=== PATIENT | female | born 1950 | race Caucasian/White ===

== ENCOUNTER 2016-10-05 11:12 | Inpatient (IN) ==
[2016-10-05 12:02] LABS: BASO% 0.2 % (0.0-0.8); HEMATOCRIT 31.5 % (37.0-47.0); HEMOGLOBIN 9.4 g/dL (12.0-16.0); IMM GRAN# 0.03 X1000 (0.0-0.04); IMM GRAN% 0.6 % (0.0-0.5); LYMPH# 0.62 X1000 (1.2-3.4); LYMPH% 11.6 % (20.5-51.1); MANUAL DIFF NEEDED? NO; MCHC 29.8 g/dL (33-37); MCV 70.3 FL (81-99); MONO% 13.1 % (1.7-9.3); MPV 9.5 FL (7.4-10.4); NEUT% 74.5 % (42.2-75.2); PLT 379 X1000 (130-400); RBC 4.48 XMIL (4.2-5.4)
--- NOTE | 2016-10-05 12:13 | Diag Imaging Result Doc PS360 ---
EXAM: HEAD W/O CONTRAST - 10/05/2016 HISTORY: right hemiparesis and facial droop TECHNIQUE: Without contrast. Dose reduction protocol. COMPARISON: 09/24/2016 FINDINGS: There are moderate chronic microvascular ischemic changes similar to the previous exam. There is no indication of recent infarct, but acute infarcts may not be immediately visible. There is an approximately 1 cm partially calcified lesion at the superior medial left parietal lobe which appears stable and likely represents small meningioma. There is no evidence of hemorrhage, mass effect, midline shift, or hydrocephalus. IMPRESSION: Moderate chronic microvascular ischemic changes. No visible acute process. If occult acute infarct is suspected clinically, MRI could be considered. Electronically signed by Neo Garcia 10/05/2016 12:11 PM
[2016-10-05 12:23] LABS: AGAP 18; ALKALINE PHOSPHATASE 82 U/L (32-104); BUN 17 mg/dL (8-22); CALCIUM 9.5 mg/dL (8.8-10.2); CHLORIDE 95 mmol/L (98-107); COSMO 279; GOT 11 U/L (10-30); GPT 7 U/L (10-36); POTASSIUM 3.4 mmol/L (3.5-5.1); SODIUM 136 mmol/L (136-145); TCO2 23 mmol/L (25-35); TOTAL PROTEIN 7.5 g/dL (6.3-8.3)
[2016-10-05 12:32] LABS: INR 0.96 (0.86-1.15); PROTIME 13.1 Seconds (12.1-15.5)
[2016-10-05 12:33] LABS: PTT PL 22.1 Seconds (22.6-43.9)
--- NOTE | 2016-10-05 12:40 | PROVIDER DOCUMENTATION ---
This chart was entered by Mary Jane Lawson Scribe, acting as scribe for Odalys Bailey PA. HPI-Neurological Disorder - General Chief Complaint: Stroke-Like Symptoms Stated Complaint: STROKE LIKE SX Time Seen by Provider: 10/05/16 11:23 Source: patient, family Allergies/Adverse Reactions: Patient Allergies Allergy/AdvReac Type Severity Reaction Status Date / Time Sulfa (Sulfonamide Allergy NAUSEA/VOMI Verified 10/05/16 11:21 Antibiotics) TING Home Medications: Home Medication List Medication Instructions Recorded Confirmed Last Taken Type Amlodipine Besylate [Norvasc] 5 mg PO DAILY 01/27/16 09/24/16 09/24/16 09:30 History Cyanocobalamin (Vitamin B-12) 1,000 mcg PO DAILY 01/27/16 09/24/16 09/24/16 09: 30 History [Vitamin B12] Diltiazem HCl [Diltiazem 24Hr Cd] 360 mg PO HS 01/27/16 09/24/16 09/23/16 20:00 History Pantoprazole [Protonix] 40 mg PO DAILY@0700 01/27/16 09/24/16 09/24/16 09:30 History Paroxetine HCl [Paxil] 20 mg PO HS 01/27/16 09/24/16 09/23/16 20:00 History Rivaroxaban [Xarelto] 20 mg PO HS 01/27/16 09/24/16 09/23/16 20:00 History Calcium Carbonate [Calcium] 1,200 mg PO HS 03/16/16 09/24/16 09/23/16 20:00 History Ergocalciferol (Vitamin D2) 800 unit PO HS 03/16/16 09/24/16 09/23/16 20:00 History [Vitamin D] Hydrocodone/Acetaminophen [[place] 1 each PO Q8H PRN PRN 03/16/16 09/24/16 09:30 History 7.5-325 Tablet] Simvastatin 1 tab PO DAILY 09/09/16 09/24/16 09/23/16 20:00 History Sucralfate 1 tab PO Q6HR 09/09/16 09/24/16 09/24/16 09:30 History Tizanidine HCl [Zanaflex] 1 cap PO PRN PRN 09/09/16 09/24/16 09/24/16 09:30 History Polyethylene Glycol 3350 [Miralax] 17 gm PO DAILY #30 powder, packet 09/10/1609/23/16 20:00 Rx - History of Present Illness-Neuro Nature of Presenting Problem: 66 yo F presents to the ER with complaint of R sided facial droop, R sided weakness, and aphasia onset yesterday. Pt noticed yesterday around 1000 that she had some R sided facial droop. This morning pt is unable to ambulate due to weakness in R leg and arm and has R sided facial droop. Daughter found pt like this this morning. Pt is on chronic anticoag therapy, has taken Xarelto for over 10 years. Denies any recent carotid or cardiac workup. Pt denies any Zayas or confusion. Onset/Duration: reports: 24 hours ago Context: reports: facial droop Character of Deficits: reports: impaired speech, decreased ability to stand, decreased ability to walk New weakness or altered sensation location:: reports: RUE, RLE, right facial Cognitive Baseline: alert, oriented x3 Gait Baseline: walks without assistance Associated Symptoms: reports: decreased ability to walk or stand. denies: headache, dizziness, confusion, chest pain Review of Systems - Adult - REVIEW OF SYSTEMS - ADULT Constitutional: denies: chills, fever Eyes: reports: no symptoms reported Ears, Nose, Mouth & Throat: reports: no symptoms reported Cardiovascular: denies: chest pain, palpitations Respiratory: reports: no symptoms reported Gastrointestinal: denies: diarrhea, nausea, vomiting Genitourinary: reports: no symptoms reported Musculoskeletal: reports: no symptoms reported Integumentary: reports: no symptoms reported Neurological: reports: see HPI, slurred speech Psychiatric: reports: no symptoms reported Endocrine: reports: no symptoms reported Hematologic/Lymphatic: reports: no symptoms reported Allergic/Immunologic: reports: no symptoms reported All Other Systems: Reviewed and Negative Past History - Adult - PAST MEDICAL HISTORY-ADULT Review of Records: reports: Nursing Assessment Review, Medications Reviewed Cardiovascular: reports: HTN, hyperlipidemia Gastrointestinal: reports: other (hital hernia, distended esophagus) - PRIOR SURGERIES/PROCEDURES Surgical/Procedure History: reports: bowel surgery, orthopedic (extremity) (knee ), other (lung) - IMMUNIZATION STATUS Childhood Immunizations: See Nurse Assessment Flu Vaccine: See Nurse Assessment Physical Exam- Neurological - Physical Exam-Neuro Initial Vital Signs Reviewed: Yes General Appearance: alert, no apparent distress Eye Exam: bilateral eye: normal inspection, PERRL, EOMI HENMT: normocephalic/atraumatic, moist mucous membranes, normal ENT inspection, TMs normal, pharynx normal Head Injury: no evidence of injury. 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, normal speech, abnormal speech (slurred), facial droop (R) Motor/Sensory: weak motor strength RUE (3/5), weak motor strength RLE (2/5) Neurologic: grossly normal, no motor/sensory deficits Integumentary: normal color, warm/dry Psych/Mental Status: normal mood/affect, normal thought content, normal thought process, oriented x 3 Progress - PLAN OF CARE/RESULTS Progress/Plan/Lab Results: Vital Signs - 8 hr 10/05/16 11:22 Temperature 98.1 F Pulse Rate 61 Respiratory Rate 16 Blood Pressure 129/68 O2 Sat by Pulse Oximetry 100 Laboratory Results - last 24 hr 10/05/16 10/05/16 10/05/16 11:37 11:37 11:37 WBC 5.36 RBC 4.48 Hgb 9.4 L Hct 31.5 L MCV 70.3 L MCH 21.0 L MCHC 29.8 L RDW Std Deviation 17.3 H Plt Count 379 MPV 9.5 Immature Gran % (Auto) 0.6 H Neut % (Auto) 74.5 Lymph % (Auto) 11.6 L [place] % (Auto) 13.1 H Eos % (Auto) 0.0 Baso % (Auto) 0.2 Immature Gran # (Auto) 0.03 Neut # (Auto) 4.00 Lymph # (Auto) 0.62 L [place] # (Auto) 0.70 H Eos # (Auto) 0.00 Baso # (Auto) 0.01 PT INR APTT (Factor Assay) Sodium 136 Potassium 3.4 L Chloride 95 L Carbon Dioxide 23 L Anion Gap 18 BUN 17 Creatinine 0.8 Estimated GFR/1.73 m2 > 60 BUN/Creatinine Ratio 21 Glucose 199 H POC Glucose Calculated Osmolality 279 Calcium 9.5 Total Bilirubin 0.20 AST 11 ALT 7 L Alkaline Phosphatase 82 Troponin T < 0.010 Total Protein 7.5 Albumin 4.0 Globulin 4.0 Albumin/Globulin Ratio 1.0 10/05/16 10/05/16 11:37 12:22 WBC RBC Hgb Hct MCV MCH MCHC RDW Std Deviation Plt Count MPV Immature Gran % (Auto) Neut % (Auto) Lymph % (Auto) [place] % (Auto) Eos % (Auto) Baso % (Auto) Immature Gran # (Auto) Neut # (Auto) Lymph # (Auto) [place] # (Auto) Eos # (Auto) Baso # (Auto) PT 13.1 INR 0.96 APTT (Factor Assay) 22.1 L Sodium Potassium Chloride Carbon Dioxide Anion Gap BUN Creatinine Estimated GFR/1.73 m2 BUN/Creatinine Ratio Glucose POC Glucose 136 H D Calculated Osmolality Calcium Total Bilirubin AST ALT Alkaline Phosphatase Troponin T Total Protein Albumin Globulin Albumin/Globulin Ratio Orders Category Date Time Status Cardiac Monitoring DIRECTED Care 10/05/16 11:17 Active Finger Stick Blood Sugar (ED) DIRECTED Care 10/05/16 11:17 Active Saline Loc NOW Care 10/05/16 11:17 Active HEAD W/O CONTRAST [CT] Stat Exams 10/05/16 11:31 Completed MRI BRAIN W W/O CONTRAST [MRI] Stat Exams 10/05/16 12:37 Ordered CBC WITH ELECTRONIC DIFF [HEME] Stat Lab 10/05/16 11:37 Completed COMPREHENSIVE METABOLIC PANEL [CHEM] Stat Lab 10/05/16 11:37 Com[address]IME WITH INR PL [COAG] Stat Lab 10/05/16 11:[address] [COAG] Stat Lab 10/05/16 11:37 Completed TROPONIN T Stat Lab 10/05/16 11:37 Completed URINALYSIS W/POSS RFLX CULT-1 [URINALYSIS] Stat Lab 10/05/16 11:16 Uncollected URINE DRUG SCREEN PL Stat Lab 10/05/16 11:17 Uncollected EKG [EKG] Stat Ther 10/05/16 11:17 Ordered Result Diagrams: 10/05/16 11:37 10/05/16 11:37 - EKG 1 Time of EKG reading by physician:: 15:05 EKG Read and Signed by:: Marielena Rice EKG Interpretation (*Must complete 3 of following elements*): Abnormal ( borderline) Rate: 61 Rhythm: normal sinus rhythm [place]: normal QRS: LVH (minimal voltage criteria for LVH, may be normal variant) DC Interval: normal ST Wave: normal - CT/MRI 1 CT Study: Head Impression: Abnormal (moderate chronic microvascular ischemic changes, no visible acute process, if occult acute infarct is suspected clinically, MRI could be considered, per radiologist) - CONSULTS/PCP/HOSPITALIST Notification #1 *Consult/PCP/Hospitalist*: Dr. Cuevas, hospitalist Time Discussed: 12:38 Reason/Comments: right sided hemiparesis Consult Disposition: Admit Departure - Departure Date of Disposition Decision: 10/05/16 Time of Disposition Decision: 12:39 DIAGNOSIS: Stroke-like symptoms, Chronic anticoagulation, Anemia, chronic disease, Acute right-sided weakness Disposition: ADMITTED INPATIENT 09 Certified Medical Emergency: Emergent Condition: Stable Referrals and Follow-Ups: Rolando Hernandez MD [Primary Care Provider] - - Critical Care Note This patient required my direct & personal management of CC.: No Attestation - Physician/ JEIMY Attestation Patient care was provided by Advanced Practice Provider:: Yes Advanced Practice Provider:: Odalys Bailey Advanced Practice Provider documentation review:: The Mid-level provider documentation, treatment plan and medical decision making was reviewed by the physician who agrees with all treatment and medical decision making by the MLP. This chart was documented by the indicated scribe, (Mary Jane Lawson Scribe) and accurately reflects the services I performed and decisions made by , Odalys Bailey PA, as attested by the provider's signature.
[2016-10-05 13:12] LABS: UR AMPHETAMINES QUAL NONE DETECTED (NONE DETECT); UR BARBITUATES QUAL NONE DETECTED (NONE DETECT); UR BENZODIAZEPIN QUAL NONE DETECTED (NONE DETECT); UR CANNABINOIDS QUAL NONE DETECTED (NONE DETECT); UR COCAINE QUAL NONE DETECTED (NONE DETECT); UR MDMA QUAL NONE DETECTED (NONE DETECT); UR METHADONE QUAL NONE DETECTED (NONE DETECT); UR METHAMPHETAMINE QUAL NONE DETECTED (NONE DETECT); UR OPIATES QUAL NONE DETECTED (NONE DETECT); UR OXYCODONE QUAL NONE DETECTED (NONE DETECT); UR PCP QUAL NONE DETECTED (NONE DETECT); UR TCA QUAL NONE DETECTED (NONE DETECT)
--- NOTE | 2016-10-05 13:36 | EKG Report ---
Test Performed on : 10/05/2016 12:05:03 PM Test Reason : STROKE LIKE SXS Blood Pressure : / mmHG Vent. Rate : 061 BPM Atrial Rate : 061 BPM P-R Int : 198 ms QRS Dur : 074 ms QT Int : 418 ms P-R-T Axes : 062 009 023 degrees QTc Int : 420 ms Normal sinus rhythm. Minimal voltage criteria for LVH, may be normal variant Borderline ECG When compared with ECG of 16-MAR-2016 07:08, Minimal criteria for Septal infarct are no longer present Nonspecific T wave abnormality, improved in Inferior leads Nonspecific T wave abnormality no longer evident in Anterolateral leads QT has shortened Unconfirmed Result
[2016-10-05] MEDS ORDERED: TYLENOL PO PRN (13:49)
[2016-10-05] MEDS ORDERED: ZOFRAN IV PRN (13:49)
[2016-10-05 13:57] LABS: URINE SOURCE CLEAN CATCH
[2016-10-05 13:58] LABS: BILIRUBIN URINE NEGATIVE (NEGATIVE); BLOOD URINE TRACE (NEGATIVE); CLARITY CLEAR (CLEAR); COLOR YELLOW; GLUCOSE URINE NEGATIVE (NEGATIVE); SP GRAVITY URINE 1.015
[2016-10-05 13:59] LABS: LEUKOCYTES URINE TRACE (NEGATIVE); NITRITE URINE NEGATIVE (NEGATIVE); PROTEIN URINE TRACE mg/dL (NEGATIVE); UROBILINOGEN URINE NORMAL
[2016-10-05 14:00] LABS: URINE EPITHELIAL CELLS >10 /HPF (<10); URINE RBC <10 /HPF (<10); URINE WBC <10 /HPF (<10)
[2016-10-05 14:01] LABS: URINE CAST GRANULAR PRESENT /LPF; URINE CRYSTAL NONE SEEN /HPF; URINE CULTURE PL NEEDED? YES
--- NOTE | 2016-10-05 14:26 | HISTORY AND PHYSICAL ---
PRIMARY CARE PHYSICIAN: Dr. Hernandez. CHIEF CONCERN: Right-sided weakness and some aphasia that began yesterday around 10 a.m. HISTORY OF PRESENT ILLNESS: This morning when she woke up she was having difficulty ambulating with right-sided weakness, right-sided facial droop, some mild expressive aphasia. When she arrived to the emergency room we did a head CT that showed moderate chronic microvascular ischemic changes. No visible acute process. If acute infarct is suspected clinically, MRI should be considered. We have obtained an MRI but the report is still pending. So, she is being admitted for further evaluation and treatment. PAST MEDICAL HISTORY: Hypertension, GERD, atrial fibrillation, and lung cancer. PAST SURGICAL HISTORY: Hiatal hernia repair, right lobectomy secondary to the lung cancer, partial colectomy, and knee surgery, foot surgery, and carpal tunnel. FAMILY HISTORY: Coronary artery disease. SOCIAL HISTORY: She currently lives with her son. Denies any tobacco, alcohol , or illicit drug use. ALLERGIES: Sulfa. HOME MEDICATIONS: A current list will be obtained. We will restart as appropriate. LABORATORY DATA: Showed a white blood cell count of 5.36, hemoglobin of 9.4, hematocrit 31.5, platelets 379,000. PT and INR of 13.1 and 0.96. Sodium of 136, potassium 3.4, chloride 95, CO2 23, BUN of 17, creatinine 0.8, glucose 199. Troponin less than 0.010. Triglycerides of 123, cholesterol 158. Urinalysis is pending. Urine drug screen showed none detected. EKG showed normal sinus rhythm at 61. Head CT showed moderate chronic microvascular ischemic changes. No visible acute process. If occult acute infarct is suspected clinically MRI should be considered. MRI was obtained and those results are pending. REVIEW OF SYSTEMS: She denied any fever, chills, blurred vision, dizziness, chest pain, coughing, shortness of breath, abdominal pain, constipation, diarrhea, burning or hurting with urination. She is positive for right-sided facial drooping, right-sided weakness, and some mild post expressive aphasia. PHYSICAL EXAMINATION: VITAL SIGNS: On arrival, she had a temperature of 98.1 degrees, pulse 61, respirations 16, blood pressure 129/68, saturating 100% on room air. GENERAL: This is a 66-year-old female who is lying in the bed, answers questions appropriately. HEENT: Normocephalic and atraumatic. Pupils are equal, round, reactive to light. Extraocular movements are intact. Oropharynx and nares are clear. NECK: Supple. LUNGS: Clear to auscultation bilaterally with equal lung expansion and chest wall movement. HEART: Regular rate and rhythm. No murmurs, rubs, or gallops. ABDOMEN: Soft, nontender, nondistended. Bowel sounds are present x4 quadrants. EXTREMITIES: There is no clubbing, cyanosis, or edema. NEUROLOGICAL: Cranial nerves 2 through 12 are intact but there is right-sided facial drooping noted, right-sided weakness to upper and lower extremity, and some mild aphasia , but speech is clear at this time. ASSESSMENT: 1. Acute cerebrovascular accident. 2. Hypertension. 3. Gastroesophageal reflux disease. 4. History of atrial fibrillation, currently in normal sinus rhythm at 61. PLAN: She was admitted to the medical unit at [facility] and placed on telemetry. We will hold NPO until a nursing bedside swallowing study can be done. We will check a carotid ultrasound and an echocardiogram in the a.m. the MRI is pending. We will repeat a CBC, BMP in the a.m. We will verify her home medications and restart those as appropriate. We will place on aspirin 325 mg daily. We will do neuro checks q.4 hours for 24 hours. We will consult physical therapy to evaluate and treat. Pt is a full code. Dictated by NIA Saunders for Francesco Cuevas MD cc: NIA Saunders MD Hiteshri S. Bhavsar, MD MTDD
--- NOTE | 2016-10-05 15:11 | Diag Imaging Result Doc PS360 ---
EXAM: MRI BRAIN W W/O CONTRAST HISTORY: right sided weakness and facial droop TECHNIQUE: Axial, sagittal, and coronal images obtained in multiple sequences. These are followed by postcontrast axial and coronal images. COMPARISON: None. FINDINGS: No recent infarct. There is extensive abnormal signal in the white matter primarily in the parietal lobes. Small area of increased signal in the left arjun on the T2 and FLAIR weighted images. No mass or midline shift. No enhancing lesion on the postcontrast images. No hydrocephalus. No epidural or subdural fluid collection. No sinus opacification and no air-fluid levels. IMPRESSION: 1.No recent infarct 2.Extensive abnormal signal primarily involving the parietal lobes, but to a lesser extent the frontal and occipital lobes as well as the left arjun. The findings are nonspecific but may simply represent prominent microvascular ischemic changes, but could also include a demyelinating process. Electronically signed by Pablo Valle 10/05/2016 3:09 PM
[2016-10-05] MEDS: ASPIRIN PO SCH (15:35)
[2016-10-05] MEDS ORDERED: NORCO-7.5 PO PRN (20:15)
[2016-10-05] MEDS: CARDIZEM CD PO SCH (20:37)
[2016-10-06 06:24] LABS: MANUAL DIFF NEEDED? NO
[2016-10-06 06:56] LABS: BASO% 0.4 % (0.0-0.8); EOS# 0.01 X1000 (0.0-0.7); EOS% 0.2 % (0.0-10.0); HEMATOCRIT 29.4 % (37.0-47.0); HEMOGLOBIN 8.8 g/dL (12.0-16.0); IMM GRAN# 0.02 X1000 (0.0-0.04); IMM GRAN% 0.4 % (0.0-0.5); LYMPH# 1.49 X1000 (1.2-3.4); LYMPH% 29.9 % (20.5-51.1); MCHC 29.9 g/dL (33-37); MCV 70.2 FL (81-99); MONO# 0.96 X1000 (0.11-0.59); MONO% 19.3 % (1.7-9.3); MPV 9.7 FL (7.4-10.4); NEUT% 49.8 % (42.2-75.2); PLT 314 X1000 (130-400); RBC 4.19 XMIL (4.2-5.4)
[2016-10-06 07:10] LABS: AGAP 11; BUN 13 mg/dL (8-22); CHLORIDE 100 mmol/L (98-107); COSMO 278; POTASSIUM 2.9 mmol/L (3.5-5.1); SODIUM 139 mmol/L (136-145); TCO2 28 mmol/L (25-35)
[2016-10-06 07:29] LABS: HDL 79 mg/dL (45-65); LDL 46 mg/dL; TRIGLYCERIDES 117 mg/dL (35-135); VLDL 23 mg/dL
[2016-10-06] MEDS ORDERED: KLOR-CON PO ONE (08:15)
--- NOTE | 2016-10-06 08:36 | PROGRESS NOTE ---
DATE: 10/06/2016 SUBJECTIVE: The patient notes that she is feeling a little bit better. Speech seems more normal to her, although still slurred, still having some right lower extremity weakness, but also improved. OBJECTIVE: Vital Signs: On physical, temp 98, pulse 50, respiratory rate 18, BP 148/61, satting 100% on room air. General: Patient is awake, alert, oriented. She is currently in no respiratory distress. HEENT: Normocephalic. She is noted to have some facial drooping on the left. Speech is slurred, but easily understandable. Neck: Supple. No JVD. No appreciable bruits. Chest: Clear, nonlabored. CV: Regular rate. Positive systolic ejection murmur, although patient notes that she has been told this in the past. Abdomen: Soft. Extremities: She moves her left upper and lower extremity well. 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 Right lower extremity has 3/5 strength, which is improved from yesterday's exam. ASSESSMENT: 1. Hypokalemia. Potassium 2.9. Will replace oral. 2. Acute cerebrovascular accident. She appears to be improving. She is awake, alert, oriented. We will advance her diet after her swallowing study. 3. Hypertension. Blood pressures are very well controlled 148-160 systolic. 4. Reflux. 5. History of atrial fibrillation, currently sinus rhythm. PLAN: We will check echo, carotid, get physical therapy, advance her diet. Continue to control her blood pressures. Further orders as needed. cc: Francesco Cuevas MD
[2016-10-06] MEDS ORDERED: SIMVASTATIN PO SCH (09:00)
[2016-10-06] MEDS: ASPIRIN PO SCH (09:11)
--- NOTE | 2016-10-06 15:23 | Extremity Venous Study ---
EXAM: Carotid Ultrasound INDICATION: CVA COMPARISON: None. FINDINGS: Thyroid nodules are noted incidentally. For reference, there is a prominent thyroid isthmus nodule measuring up to 3 cm in the greatest dimension. Consider correlation with a dedicated thyroid ultrasound. Right: There is mild patchy atherosclerotic calcification at the carotid bulb and right ICA on grayscale images. The peak systolic velocity measures 170, 90, 77, 70, 78, 73, and 158 cm/s at the right subclavian artery, CCA, bifurcation, proximal ICA, mid ICA, distal ICA, and ECA, respectively. There is antegrade flow in the vertebral artery. The carotid ratio is 0.81. Left: There is mild patchy atherosclerotic calcification at the left carotid bulb and left ICA on grayscale images. The peak systolic velocity measures 211, 130, 66, 85, 84, 80, and 130 cm/s at the left subclavian artery, CCA, bifurcation, proximal ICA, mid ICA, distal ICA, and ECA, respectively. There is antegrade flow in the vertebral artery. The carotid ratio is 0.65. IMPRESSION: 1.Patchy mild atherosclerotic calcification involving the carotid bulbs and ICAs bilaterally. However, there is no evidence of hemodynamically significant stenosis at the carotid bulbs or ICAs. 2. Incidental thyroid nodules. Consider follow-up with thyroid ultrasound. Electronically signed by León Duenas 10/06/2016 3:21 PM
[2016-10-06] MEDS: CARDIZEM CD PO SCH (21:18)
[2016-10-06] MEDS: ZOCOR PO SCH (21:18)
--- NOTE | 2016-10-07 08:26 | PROGRESS NOTE ---
DATE: 10/07/2016 SUBJECTIVE: The patient notes that she is feeling a little bit stronger. Denies any nausea or vomiting. Denies any other chest pains or palpitations. Notes that she was able to ambulate a little bit better yesterday. OBJECTIVE: Vital Signs: Temp 98, pulse 61, respiratory rate 18, BP 158/53, satting 100% on room air. General: Patient is awake, alert. She is currently in no respiratory distress. Pleasant to talk with. Neck: Supple. CV: Regular rate. Chest: Clear. Abdomen: Soft. Neuro: Still has some facial weakness, but improved. Still has weakness on the right hand, but is 4/5 strength today which is improved. Her right lower extremity strength also has improved, but still weaker than the left. LABS: Potassium 2.9 on yesterday's exam, was replaced and currently pending this morning. X-RAYS: Carotid ultrasound with no significant stenosis, although did have incidental thyroid nodules. This would need to be followed up outpatient. ASSESSMENT: 1. Acute cerebrovascular accident with slurred speech, which is improving, and right-sided weakness, which is improving. 2. Hypertension. Blood pressures are stable, currently 140s to 150s. We will continue that for the next 2-3 days and then become tighter control. 3. Atrial fibrillation, currently sinus rhythm. She was only on aspirin at home. Certainly would need to increase this to aspirin and Plavix over the next few days. It appeared she was on Xarelto at home. We will restart this and continue to follow. PLAN[facility] currently is not [facility]. We will again pursue evaluation, continue her home medications, and hopefully home in the next 1-2 days. cc: Francesco Cuevas MD
[2016-10-07] MEDS ORDERED: ZANAFLEX PO PRN (09:21)
[2016-10-07] MEDS ORDERED: NORVASC PO SCH (09:30)
[2016-10-07] MEDS: VITAMIN B-12 PO SCH (10:07)
[2016-10-07] MEDS: CARAFATE PO SCH ×3 (10:07→20:25)
[2016-10-07] MEDS: PROTONIX PO SCH (10:07)
[2016-10-07] MEDS: ASPIRIN PO SCH (10:07)
[2016-10-07 10:14] LABS: HEMATOCRIT 34.6 % (37.0-47.0); HEMOGLOBIN 10.2 g/dL (12.0-16.0); MCH 20.5 PG (27-31); MCHC 29.5 g/dL (33-37); MCV 69.6 FL (81-99); MPV 9.9 FL (7.4-10.4); RBC 4.97 XMIL (4.2-5.4)
[2016-10-07 10:22] LABS: AGAP 12; ALBUMIN 3.4 g/dL (3.5-5.0); ALKALINE PHOSPHATASE 84 U/L (32-104); BUN 19 mg/dL (8-22); CALCIUM 8.9 mg/dL (8.8-10.2); CHLORIDE 101 mmol/L (98-107); COSMO 278; GOT 16 U/L (10-30); GPT 11 U/L (10-36); POTASSIUM 3.7 mmol/L (3.5-5.1); SODIUM 137 mmol/L (136-145); TCO2 24 mmol/L (25-35)
[2016-10-07] MEDS ORDERED: XARELTO PO SCH (17:00)
[2016-10-07] MEDS ORDERED: SODIUM CHLORIDE 0.9% INJ PRN (18:12)
[2016-10-07] MEDS ORDERED: PHENERGAN IV PRN (18:12)
[2016-10-07] MEDS: CARDIZEM CD PO SCH (20:24)
[2016-10-07] MEDS: ZOCOR PO SCH (20:25)
[2016-10-07] MEDS ORDERED: PAXIL PO SCH (21:00)
[2016-10-07] MEDS ORDERED: CALTRATE 600 PO SCH (21:00)
[2016-10-07] MEDS ORDERED: VITAMIN D PO SCH (21:00)
[2016-10-08] MEDS: CARAFATE PO SCH ×3 (02:30→12:01)
[2016-10-08] MEDS: PROTONIX PO SCH (06:09)
[2016-10-08] MEDS ORDERED: CARAFATE PO SCH (07:30)
[2016-10-08] MEDS: ASPIRIN PO SCH (08:11)
[2016-10-08] MEDS: VITAMIN B-12 PO SCH (08:11)
[2016-10-08 11:32] VITALS: BP 138/53
--- NOTE | 2016-10-08 11:58 | DISCHARGE SUMMARY ---
ADMISSION DATE: 10/05/2016 DISCHARGE DATE: 10/08/2016 PRIMARY CARE PHYSICIAN: Dr. Hernandez. ADMISSION DIAGNOSES: 1. Acute cerebrovascular accident. 2. Hypertension. 3. Gastroesophageal reflux disease. 4. History of atrial fibrillation, currently in normal sinus rhythm at 61. DISCHARGE DIAGNOSES: 1. Acute cerebrovascular accident. 2. Hypertension. 3. Gastroesophageal reflux disease. 4. History of atrial fibrillation, currently in normal sinus rhythm at 61. SUMMARY OF FINDINGS: This is a 66-year-old female who presented to the emergency room with complaints of difficulty ambulating with right-sided weakness, right-sided facial droop, and some mild expressive aphasia. We did a head CT that showed some moderate chronic microvascular ischemic changes, no visible acute process. We did obtain an MRI of the brain that showed no recent infarct at that time, extensive abnormal signal primarily involving the parietal lobes but to a lesser extent the frontal and occipital lobes as well as the left arjun. The findings were nonspecific but may simply represent prominent microvascular ischemic changes but could also include demyelinating process. We checked a carotid Doppler study that showed an impression of patchy mild atherosclerotic calcifications involving the carotid bulbs and ICAs bilaterally but no evidence of hemodynamically significant stenosis at the carotid bulbs or ICAs. Speech Therapy evaluated her. She demonstrated some mild dysarthria but 100% intelligible, no dysphagia or aphasia observed, and they recommended a regular diet. She has been followed by Physical Therapy, also, tolerated treatments well. She had some hypokalemia when she first came in, but that has resolved after supplementation, and it is felt that she can safely be discharged to [facility] today. DISCHARGE MEDICATIONS: We will discharge her on the following medications: 1. Xarelto 20 mg p.o. at bedtime. 2. Protonix 40 mg p.o. daily. 3. Diltiazem CD 360 mg p.o. at bedtime. 4. Paxil 20 mg p.o. at bedtime. 5. Vitamin W69--2960 mcg p.o. daily. 6. Norvasc 5 mg p.o. daily. 7. Vitamin D2--800 units p.o. at bedtime. 8. Strong 7.5 q.8 h. p.o. p.r.n. 9. Calcium carbonate 1200 mg p.o. at bedtime. 10.Simvastatin 10 mg p.o. daily. 11.Carafate 1 g p.o. q.6 h. 12.Tizanidine one p.o. q.8 h. p.r.n. FOLLOWUP: After she completeness her rehab stay at [facility], she will need to follow up with her primary care physician at that time. All discharge instructions have been reviewed with the patient. She verbalizes understanding. This is a 35-minute discharge. Dictated by NIA Saunders for Francesco Cuevas MD cc: NIA Saunders MD Hiteshri S. Bhavsar, MD
--- NOTE | 2016-11-04 08:21 | DISCHARGE SUMMARY ---
ADMISSION DATE: 10/05/2016 DISCHARGE DATE: 10/08/2016 FINAL DISCHARGE DIAGNOSES: 1. Constipation. 2. History of lung cancer status post right lobectomy. 3. Hypertension. 4. Gastroesophageal reflux disease. 5. Atrial fibrillation. CONSULTATIONS REQUESTED DURING THIS HOSPITAL STAY: GI consultation with Dr. García. HOSPITAL COURSE: Ms Martinez is a 66-year-old female who presented to the ER with abdominal pain. After further questioning, the patient admitted that she had not had a bowel movement in quite some time. CT of the abdomen and pelvis was done that revealed constipation as well as bilateral nephrolithiasis. GI was consulted and the patient was started on laxative therapy. Once the patient had a bowel movement her abdominal pain resolved. The patient was ultimately cleared for discharge home on August. DISCHARGE MEDICATIONS: 1. Augmentin 500+ 125 1 tab oral twice a day. 2. MiraLAX 17 g mg p.o. daily. 3. Xarelto 20 mg p.o. bedtime. 4. Protonix 40 mg p.o. daily. 5. Cardizem CD 360 mg p.o. at bedtime. 6. Vitamin B12 1000 mcg oral daily. 7. Norvasc 5 mg p.o. daily. 8. Vitamin D2 800 units oral at bedtime. 9. [place] 7.5/325, 1 tab oral every 8 hours. 10. Simvastatin 40 mg p.o. at bedtime. 11. Carafate 1 g p.o. every 6 hours. 12. Calcium carbonate 1200 mg p.o. at bedtime. 13. Zanaflex 1 capsule every 12 hours p.r.n. DISCHARGE DIET: Low-sodium diet. ACTIVITY: As tolerated. FOLLOWUP INSTRUCTION: The patient will need to follow up with Dr. Hernandez in 2 weeks. cc: Carisa Ashraf MD [facility]
== END 2016-10-08 13:33 ==
LOC: P.ED 11:12 → P.MEDSURG 12:39
PROVIDERS: ATTEND Family Medicine